=== PATIENT | female | born 1975 | race Caucasian/White ===

== ENCOUNTER 2017-02-26 17:20 | Emergency (ER) | payer OTHER ==
[~2017-02-26] VITALS: Ht 167.6 cm; Wt 86.4 kg
[2017-02-26 17:25] VITALS: BP 123/75; PULSE 85; RESP 20; O2SAT 96
--- NOTE | 2017-02-26 17:32 | ED.REPORT ---
HPI-Back Pain 40 and Over Date of Service Feb 26, 2017 ED Provider: Parrish Jacobo MD The pt is a 41 year old female with a history of degenerative disc disease who is brought to the ED via EMS complaining of low back pain. 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 She has been unable to walk or stand normally due to pain since but denies weakness, incontinence, fever or chills. Hydrocodone has not relieved her pain. The pt has experienced similar pain before, but the pain was not nearly as severe. Nursing Notes Stated Complaint: LOW BACK PAIN Chief Complaint: Back Pain or Injury Nursing Notes Reviewed: Yes Allergies: Coded Allergies: No Known Allergies (Unverified , 02/26/17) Scheduled PRN Cyclobenzaprine (Cyclobenzaprine) 5 Mg Tablet 5 MG PO HS PRN PRN Spasm General Time Seen by MD: 17:29 Chief Complaint Back pain Hx Obtained From: Patient, EMS Arrived By: Ambulance Sudden in Onset?: Yes Onset Occurred: 5 - 8 hours ago Symptom Duration: Since onset Recent Healthcare: No recent hospitalization Similar Sx Previous: Yes Past Medical History Past Medical History degenerative disc disease Past Surgical History none reported Smoking History Unknown if Ever Smoker Social History Other Social History: Good social support, Ambulatory Status Independent Review of Systems Constitutional: Denies: Chills, Fever, Weakness - generalized Respiratory: Denies: Non-productive cough, Shortness of breath Cardiovascular: Denies: Chest pain GI: Denies: Abdominal pain, Vomiting Musculoskeletal: Reports: Back pain, Denies: Neck pain Complete sys rev & neg: except as marked. Physical Exam Initial Vital Signs Vital Signs (First) Date Time Temp Pulse Resp B/P Pulse Ox O2 Delivery O2 Flow Rate FiO2 02/26/17 17:25 36.8 85 20 123/75 96 Room Air Initial VS: Reviewed General/Constitutional: Awake, Alert Respiratory / Chest: Atraumatic, Breath sounds NL, Breath sounds = bilat, No respiratory distress Cardiovascular: Heart rate NL, Regular rhythm, Heart sounds NL, No gallop, No murmurs, No rubs Abdomen: Atraumatic, Soft, Non-tender Back: Atraumatic, Full range of motion no midline cervical, thoracic or lumbar tenderness no palpable bony step-offs or deformity Neurologic: Oriented X3, Speech NL, No motor deficits, No sensory deficits sensation intact in bilateral lower extremities no saddle anesthesia Neck: Atraumatic, Supple, Full range of motion Lower Extremity / Pelvis / MS: Atraumatic, Full range of motion Skin: Atraumatic, Color NL, No rash, Warm, Dry Head / Eyes: Atraumatic, Normocephalic, PERRL, EOMI ENT: Atraumatic, Airway patent, Mucous membranes moist Upper Extremity / MS: Atraumatic, Full range of motion Psychiatric: Affect NL, Mood NL Interpretation & Diagnostics Lab Results Interpretation Test 02/26/17 19:53 Hold Urine Received (Received) Re-Eval/Medical Decision Med Decision/Clinical Course In summary, the patient is a 41-year-old female with past medical history significant for chronic low back pain, who presents with acute back pain exacerbation. Our primary and secondary assessment reveals an awake, alert patient in no acute distress. Hemodynamically stable and afebrile. Exam reveals normal neurologic exam of the lower extremities. Given this immunocompetent, afebrile, patient's history and exam, suspect muscle strain or spasm. No concerning signs or symptoms suggestive of cauda equina, cord compression, epidural abscess or other neurologic emergency. History not suggestive of referred intraabdominal pathology or vascular emergency. There is no history of significant trauma, fever, incontinence, unexplained weight loss, cancer history, long-term steroid use or IV drug use. And given the patient's young age, I do not feel imaging is warranted at this time. Patient was treated with Toradol with some improvement in her symptoms that she reported ongoing severe pain and asked for additional pain medications. I reluctantly gave the patient one dose of hydromorphone and thereafter she was noted to be sitting up in bed and ambulating in the hallway with no significant distress. Given the patient's workup, feel they are safe for discharge with conservative management. I have recommended NSAIDs, ice pack/hot packs, avoidance of bedrest , following up with primary care physician and have provided a limited supply of Flexeril for use at night. Have discussed with the patient results of workup, indications for return including: motor weakness in the lower extremities and/or bowel or bladder incontinence. Also emphasized the need for PCP follow up. They understand and agree with the plan. Re-Evaluation/Progress : Time of Eval: 17:29 Patient Status: Condition improved Re-Evaluation/Progress Note: Pt informed of the diagnosis and plan for discharge during the initial interview. The pt understands and agrees with the plan. All questions are addressed at this time. Counseled Regarding: Diagnosis, Need for follow-up, Need for admission Discharge & Departure Impression: Primary Impression: Low back pain Chronicity: acute Back pain laterality: unspecified Sciatica presence: without sciatica Qualified Code: M54.5 - Low back pain Disposition: Home Discharge Condition All VS Reviewed: Yes Condition: Stable Patient Instructions: Acute Low Back Pain (ED) Additional Instructions: Thank you for seeking care at the emergency room. Our primary goal today in the Emergency Department was to evaluate you for any life-threatening conditions. Your evaluation was reassuring. You will be discharged with a prescription for Flexeril. Take ibuprofen 600 mg three times daily for one week. Take 650 mg Tylenol. Take these medications with food. Alternate with ice and heat packs. Avoid bedrest. You should follow-up with your primary doctor in the next week. You should return to the Emergency Department immediately if you develop worsening pain, incontinence, fevers, vomiting, cough, shortness of breath, chest pain, lightheadedness, weakness or any other concerning signs or symptoms. Thank you for letting us partake in your care today. Referrals: Abisai Finley Attestation Portions of this note were transcribed by Thuy Argueta. I, Dr. Jacobo personally performed the history, physical exam and medical decision-making; I reviewed and confirmed the accuracy of the information in the transcribed note. copies to: Abisai Finley Beck O MD Feb 26, 2017 17:32 THUY ARGUETA Feb 26, 2017 18:19
[2017-02-26] MEDS ORDERED: CYCL5TAB PO (18:25)
[2017-02-26] MEDS ORDERED: HYDROmorphone 1 mg/mL Inj IVPUSH ONE (19:20)
[2017-02-26 19:58] VITALS: BP 119/81; PULSE 73; RESP 20; O2SAT 98
[2017-02-26 20:09] VITALS: BP 119/81; PULSE 73; RESP 20; O2SAT 98
== END 2017-02-26 20:10 | disposition home or self-care (01) ==
LOC: EDSEX 17:20 → SED 17:20
DX: M54.5 Low back pain (principal)
CPT/HCPCS: 81025; 96372; 96374; 99284; J1170; J1885